=== PATIENT | female | born 1975 ===

== ENCOUNTER 2022-06-05 11:06 | Observation (INO) ==
[2022-06-05] MEDS ORDERED: Clindamycin 900 MG/D5W BAG IVPB ONE (11:30)
[2022-06-05] MEDS ORDERED: Scopolamine 1 mg/72hr PATCH ONE (11:44)
[2022-06-05] MEDS ORDERED: oxyCODONE SR 10 mg TAB ONE (11:44)
[2022-06-05] MEDS ORDERED: Ondansetron 4 mg VIAL 2 MG/ML 2 ml VIAL ONE (11:44)
[2022-06-05 11:48] LABS: ABS Basophils 0.1 10^3/ul (0-0.2); ABS Lymphocytes 1.8 10^3/ul (1.0-4.8); ABS Monocytes 0.6 10^3/ul (0-0.8); ABS Neutrophils 5.1 10^3/ul (1.5-7.7); Eosinophil % 0.6 %; Hematocrit 36 % (35-47); Lymphocyte % 23.2 %; Mean Corpuscular HGB Conc 33 g/dL (31-36); Mean Corpuscular Hemoglobin 29 pg (27-31); Mean Corpuscular Volume 87 fL (80-97); Mean Platelet Volume 7.7 fL (7.4-10.4); Platelet Count 489 10^3/uL (150-450); Red Blood Count 4.17 10^6 /uL (3.70-4.87); Red Cell Distribution Width 12 % (10-15); White Blood Count 7.6 10^3/uL (3.5-10.8)
[2022-06-05 12:03] LABS: Activated Partial Thrombo Time 30.6 seconds (26.0-38.0)
[2022-06-05] MEDS ORDERED: Iohexol 350 (CONTRAST) 100 ML PAK IV ONE ×3 (12:04→13:08)
[2022-06-05] MEDS ORDERED: Heparin 2 UNITS/ML IVPREMIX 3,000 UNIT/1,500 ML BAG IV ONE (12:04)
[2022-06-05] MEDS ORDERED: Lidocaine 1% VIAL 10 MG/ML VIAL 30 ML ONE (12:04)
[2022-06-05] MEDS ORDERED: Midazolam 5 mg/5 ml VIAL 1 mg/ml 5 ml VIAL (5 mg) ONE (12:14)
[2022-06-05] MEDS ORDERED: fentaNYL 100 mcg/2 ml 50 MCG/ML VIAL ONE (12:14)
[2022-06-05] MEDS ORDERED: nitroGLYCERIN DRIP 25,000 MCG/250 ML BTL ONE (12:23)
[2022-06-05 12:34] LABS: Anion Gap 7 mmol/L (2-11); Blood Urea Nitrogen 12 mg/dL (6-24); CO2 Carbon Dioxide 27 mmol/L (22-32); Calcium 8.9 mg/dL (8.6-10.3); Chloride 103 mmol/L (101-111); Glucose 99 mg/dL (70-100); Potassium 3.7 mmol/L (3.5-5.0); Sodium 137 mmol/L (135-145); eGFR CKD-EPI 108.7 (>60)
[2022-06-05 12:40] LABS: HCG Pregnancy < 0.60 mIU/mL
[2022-06-05] MEDS ORDERED: Heparin 2 UNITS/ML IVPREMIX 1,000 UNIT/500 ML BAG IV ONE ×2 (13:16→13:50)
[2022-06-05] MEDS ORDERED: Naloxone 0.4 mg VIAL 0.4 mg/ml 1 ml VIAL IV PUSH PRN (14:06)
[2022-06-05] MEDS ORDERED: HYDROmorphone 0.5 MG/0.5 ML SYRINGE ONE (14:06)
[2022-06-05] MEDS ORDERED: HYDROmorphone PCA 20 MG/20 ML PCA.SYRING PCA SCH (15:00)
[2022-06-05] MEDS ORDERED: Ondansetron 4 mg VIAL 2 MG/ML 2 ml VIAL IV PRN (15:44)
[2022-06-05] MEDS ORDERED: NS 0.9% 1,000 ML IV SCH (16:00)
[2022-06-05] MEDS: Ondansetron 4 mg VIAL 2 MG/ML 2 ml VIAL IV SCH (18:49)
[2022-06-06] MEDS: Ondansetron 4 mg VIAL 2 MG/ML 2 ml VIAL IV SCH ×2 (01:21→06:36)
[2022-06-06] MEDS ORDERED: HYDROcodone/ACETAMIN 5/325 mg TAB PO PRN (08:16)
[2022-06-06 11:11] VITALS: BP 119/83
[2022-06-06] MEDS ORDERED: Ketorolac 10 mg TAB (NF) PO SCH (12:00)
== END 2022-06-06 15:00 | disposition home or self-care (01) ==
LOC: SSU 11:06 → CHICATH 11:06 → SUATTDRO 16:38
PROVIDERS: ADMIT Radiology Diagnostic Radiology; ATTEND Hospitalist
PROC: ANG.UFE (2022-06-05 12:10)